=== PATIENT | female | born 1960 | race Caucasian/White ===

== ENCOUNTER 2016-07-24 10:05 | Day surgery (SDC) | payer MEDICARE ==
--- NOTE | ~2016-07-24 | EGD ---
EGD REPORT [facility] [address] [id number] NAME: MARISSA FAIR : [birth year] STATUS : REG [facility] [place] PAT#: [id number] AGE: 55 ADM/REG DATE : 07/24/16 MR#: [id number] REPORT SERV DATE: 07/24/16 DICTATED BY: MI XIE DATE: 07/24/16 REPORT STATUS : Draft [facility]: [facility] DATE: 07/24/16 Endoscopy Center Patient Name: Marissa Fair Date of : 1960 Attending MD: BOB XIE MD Procedure Date No Time: 07/24/2016 Procedure: Colonoscopy Indications: Screening for colorectal malignant neoplasm, This is the patient's first colonoscopy Referring MD: GEOVANNA JANSEN Medicines: See the Anesthesia note for documentation of the administered medications Complications: No immediate complications. Estimated blood loss: None. Procedure: Pre-Anesthesia Assessment: - ASA Grade Assessment: III - A patient with severe systemic disease. - Prior to the procedure, a History and Physical was performed, and patient medications and allergies were reviewed. The patient's tolerance of previous anesthesia was also reviewed. The risks and benefits of the procedure and the sedation options and risks were discussed with the patient. All questions were answered, and informed consent was obtained. Prior Anticoagulants: The patient has taken Coumadin (warfarin), last dose was 5 days prior to procedure. After reviewing the risks and benefits, the patient was deemed in satisfactory condition to undergo the procedure. After I obtained informed consent, the scope was passed under direct vision. Throughout the procedure, the patient's blood pressure, pulse, and oxygen saturations were monitored continuously. The PCF [id number] was introduced through the anus and advanced to the terminal ileum. The ileocecal valve, appendiceal orifice, terminal ileum and rectum were photographed. The entire colon was examined. The colonoscopy was performed without difficulty. The patient tolerated the procedure well. The quality of the bowel preparation was adequate. Findings: The perianal and digital rectal examinations were normal. The terminal ileum appeared normal. A sessile polyp was found in the distal transverse colon. The polyp was 5 mm in size. The polyp was removed with a cold snare. Resection and retrieval were complete. Non-bleeding internal hemorrhoids were found during retroflexion and EGD REPORT [address] [address] NAME: MARISSA FAIR : [birth year] STATUS : REG [facility]#: [id number] AGE: 55 ADM/REG DATE : 07/24/16 MR#: [id number] REPORT SERV DATE: 07/24/16 DICTATED BY: MI XIE DATE: 07/24/16 REPORT STATUS : Draft [facility]ANS[facility]ED BY: [facility] DATE: 07/24/16 were Grade I (internal hemorrhoids that do not prolapse). No other significant abnormalities were identified in a careful examination of the remainder of the colon. Impression: - The examined portion of the ileum was normal. - One 5 mm polyp in the distal transverse colon. Resected and retrieved. - Non-bleeding internal hemorrhoids. Recommendation: - Patient has a contact number available for emergencies. The signs and symptoms of potential delayed complications were discussed with the patient. Return to normal activities tomorrow. Written discharge instructions were provided to the patient. - Regular diet. - Discharge patient to home. - Continue present medications. - Await pathology results. - Repeat colonoscopy in 5 years for surveillance. - Restart your coumadin at your regular dose today. Procedure Code(s): --- Professional --- 16478, Colonoscopy, flexible, proximal to splenic flexure; with removal of tumor(s), polyp(s), or other lesion(s) by snare technique Diagnosis Code(s): --- Professional --- K64.0, First degree hemorrhoids D12.3, Benign neoplasm of transverse colon Z12.11, Encounter for screening for malignant neoplasm of colon CPT copyright 2013 [employer]. All rights reserved. The codes documented in this report are preliminary and upon software developer review may be revised to meet current compliance requirements. BOB XIE MD 07/24/2016 1:36 PM This report has been signed electronically. Number of Addenda: 0 Note Initiated On: 07/24/2016 1:02 PM [address] [id number]
--- NOTE | ~2016-07-24 | EGD ---
EGD REPORT [facility] [address] [address] NAME: MARISSA FAIR : [birth year] [place] [facility] [place] [id number] AGE: 55 ADM/REG DATE : 07/24/16 MR#: [id number] REPORT SERV DATE: 07/24/16 DICTATED BY: MI XIE DATE: 07/24/16 REPORT STATUS : Draft TRANSCRIBED BY: [facility] DATE: 07/24/16 Endoscopy Center Patient Name: Marissa Fair Date of : 1960 Attending MD: BOB XIE MD Procedure Date No Time: 07/24/2016 Procedure: Upper GI endoscopy Indications: Nausea with vomiting Referring MD: GEOVANNA JANSEN Medicines: See the Anesthesia note for documentation of the administered medications Complications: No immediate complications. Estimated blood loss: None. Procedure: Pre-Anesthesia Assessment: - ASA Grade Assessment: III - A patient with severe systemic disease. - Prior to the procedure, a History and Physical was performed, and patient medications and allergies were reviewed. The patient's tolerance of previous anesthesia was also reviewed. The risks and benefits of the procedure and the sedation options and risks were discussed with the patient. All questions were answered, and informed consent was obtained. Prior Anticoagulants: The patient has taken Coumadin (warfarin), last dose was 5 days prior to procedure. After reviewing the risks and benefits, the patient was deemed in satisfactory condition to undergo the procedure. After obtaining informed consent, the endoscope was passed under direct vision. Throughout the procedure, the patient's blood pressure, pulse, and oxygen saturations were monitored continuously. The GIF H190 [id number] was introduced through the mouth, and advanced to the second part of duodenum. The upper GI endoscopy was accomplished without difficulty. The patient tolerated the procedure well. Findings: The examined duodenum was normal. Biopsies were taken with a cold forceps for histology. A single localized, small non-bleeding erosion was found in the gastric antrum. There were no stigmata of recent bleeding. Biopsies were taken with a cold forceps for histology. The cardia and gastric fundus were normal on retroflexion. The examined esophagus was normal. Impression: - Normal examined duodenum. Biopsied. EGD REPORT [address] [address] NAME: MARISSA FAIR : [birth year] STATUS : REG [facility]#: [id number] AGE: 55 ADM/REG DATE : 07/24/16 MR#: [id number] REPORT SERV DATE: 07/24/16 DICTATED BY: MI XIE DATE: 07/24/16 REPORT STATUS : Draft TRANSCRIBED BY: [employer] DATE: 07/24/16 - Non-bleeding erosive gastropathy. Biopsied. - Normal esophagus. Recommendation: - Patient has a contact number available for emergencies. The signs and symptoms of potential delayed complications were discussed with the patient. Return to normal activities tomorrow. Written discharge instructions were provided to the patient. - Regular diet. - Discharge patient to home. - Continue present medications. - Await pathology results. - Restart your coumadin at your regular dose today. Procedure Code(s): --- Professional --- 64448, Esophagogastroduodenoscopy, flexible, transoral; with biopsy, single or multiple Diagnosis Code(s): --- Professional --- K31.9, Disease of stomach and duodenum, unspecified R11.2, Nausea with vomiting, unspecified CPT copyright 2013 [employer]. All rights reserved. The codes documented in this report are preliminary and upon computer engineer review may be revised to meet current compliance requirements. BOB XIE MD 07/24/2016 1:20 PM This report has been signed electronically. Number of Addenda: 0 Note Initiated On: 07/24/2016 1:05 PM Scope Withdrawal Time 0 hours 0 minutes 0 seconds [address] [id number]
[~2016-07-24 10:05] MED LIST: ASA5GR PO; ASAB PO; C25 PO; DULERA 200 MCG/13 GM INH; HYDROCHLOROT25 MG PO; L40 PO; LOP25 PO; METOPROLOL PO; PRAVACHOL40 MG PO; PRIN2.5 PO; ZANTAC 75 PO; ZANTAC150 MG PO; [UNRECOGNIZED DRUG - REMARK] PO
== END 2016-07-24 23:59 | disposition home or self-care (01) ==
LOC: DMU 10:05
PROVIDERS: Internal Medicine Gastroenterology
PROC: 0DB68ZX Excision of Stomach, Via Natural or Artificial Opening Endoscopic, Diagnostic (ICD-10-PCS; 2016-07-24)
PROC: 0DBL8ZZ Excision of Transverse Colon, Via Natural or Artificial Opening Endoscopic (ICD-10-PCS; principal; 2016-07-24 11:30)
PROC: 0DB98ZX Excision of Duodenum, Via Natural or Artificial Opening Endoscopic, Diagnostic (ICD-10-PCS; 2016-07-24 11:30)
DX: Z12.11 Encounter for screening for malignant neoplasm of colon (principal); D12.3 Benign neoplasm of transverse colon; K64.0 First degree hemorrhoids; K29.80 Duodenitis without bleeding; R11.2 Nausea with vomiting, unspecified; K31.9 Disease of stomach and duodenum, unspecified; I11.0 Hypertensive heart disease with heart failure; I50.9 Heart failure, unspecified; I25.2 Old myocardial infarction; J45.909 Unspecified asthma, uncomplicated; J44.9 Chronic obstructive pulmonary disease, unspecified; M19.90 Unspecified osteoarthritis, unspecified site; E11.9 Type 2 diabetes mellitus without complications; K21.9 Gastro-esophageal reflux disease without esophagitis; K64.9 Unspecified hemorrhoids; I25.10 Atherosclerotic heart disease of native coronary artery without angina pectoris; I49.9 Cardiac arrhythmia, unspecified; F17.210 Nicotine dependence, cigarettes, uncomplicated; E78.00 Pure hypercholesterolemia, unspecified; Z98.890 Other specified postprocedural states; Z86.73 Personal history of transient ischemic attack (TIA), and cerebral infarction without residual deficits; Z90.710 Acquired absence of both cervix and uterus; Z90.49 Acquired absence of other specified parts of digestive tract; Z95.5 Presence of coronary angioplasty implant and graft; Z88.5 Allergy status to narcotic agent; Z96.642 Presence of left artificial hip joint; Z90.89 Acquired absence of other organs; Z88.0 Allergy status to penicillin; Z79.01 Long term (current) use of anticoagulants; Z79.899 Other long term (current) drug therapy
CPT/HCPCS: 82962; 88305